=== PATIENT | female | born 1965 | race Two or more races ===

== ENCOUNTER 2024-06-28 15:57 | Inpatient (IN) | payer MEDICAID, OTHER ==
[~2024-06-28] VITALS: Ht 160 cm; Wt 99.2 kg
[2024-06-28 16:32] LABS: Basophils # (auto) 0 10 ^3/uL (0-0.2); Basophils % (auto) 0.5 % (0.0-2.0); Eosinophils # (auto) 0.1 10 ^3/uL (0-0.8); Eosinophils % (auto) 1.9 % (0.0-7.0); Hematocrit 45.4 % (36.0-46.0); Hemoglobin 15.1 g/dL (12.2-16.2); Lymphocytes % (auto) 33.4 % (10.0-50.0); Mean Corpuscular Hemoglobin 27.6 pg (28.0-32.0); Mean Corpuscular Hgb Conc. 33.4 g/dL (32.0-36.0); Mean Corpuscular Volume 82.8 fL (80.0-100.0); Monocytes # (auto) 0.5 10 ^3/uL (0-1.3); Monocytes % (auto) 8.6 % (0.0-12.0); Neutrophils # (auto) 3.4 10 ^3/uL (1.6-8.6); Neutrophils % (auto) 55.6 % (37.0-80.0); Platelet Count (auto) 284 10^3/uL (140-450); Red Blood Cells 5.48 10^6/uL (4.0-5.20); Red Cell Distribution Width 14.1 % (11.8-14.3); White Blood Cell 6.1 10^3/uL (4.4-10.8)
[2024-06-28 16:41] LABS: Alanine Aminotransferase 12 U/L (7-40); Albumin 4.6 g/dL (3.2-4.8); Alkaline Phosphatase 111 U/L (46-116); Anion Gap 7 (5-15); Aspartate Aminotransferase 14 U/L (13-40); BUN/Creatinine Ratio 18.6 (10.0-20.0); Bilirubin, Total 0.4 mg/dL (0.2-1.0); Blood Urea Nitrogen 11 mg/dL (9-23); Calcium 10.7 mg/dL (8.7-10.4); Carbon Dioxide 24 mmol/L (20-30); Chloride 109 mmol/L (98-107); Glucose 101 mg/dL (74-106); Potassium 3.8 mmol/L (3.5-5.1); Sodium 140 mmol/L (136-145); Total Protein 7.7 g/dL (5.7-8.2)
[2024-06-28 23:35] VITALS: PULSE 62; RESP 18; O2SAT 99
[2024-06-29] MEDS: MORPHINE SULFATE 4 MG/ML SYR/VIAL IM ONE (00:24)
[2024-06-29] MEDS: ONDANSETRON HCL 4 MG/2 ML VIAL IM ONE (00:24)
[2024-06-29] MEDS: HYDROcodone-ACET 5/325MG TAB PO ONE (00:56)
[2024-06-29] MEDS ORDERED: HYDROcodone-ACET 10/325MG TAB PO PRN (07:00)
[2024-06-29 07:57] VITALS: PULSE 65; RESP 15; O2SAT 97
[2024-06-29] MEDS ORDERED: ONDANSETRON HCL 4 MG/2 ML VIAL IV PRN (13:15)
[2024-06-29] MEDS ORDERED: ACETAMINOPHEN 325 MG TAB PO PRN (13:15)
[2024-06-29] MEDS ORDERED: DOCUSATE SOD 100 MG CAP PO PRN (13:15)
[2024-06-29] MEDS ORDERED: HYDROmorphone HCL 2 MG/ML VL/or syr IV PRN (13:15)
[2024-06-29] MEDS ORDERED: hydrALAZINE HCL 20 MG/ML VL IV PRN (13:15)
[2024-06-29] MEDS: amLODIPine BESYLATE 5 MG TAB PO SCH (13:30)
[2024-06-29] MEDS: SODIUM CHLOR 0.9% PF (SALINE LOCK) 10ML VIAL/SYR IV SCH (14:03)
[2024-06-29] MEDS: HYDROcodone-ACET 5/325MG TAB PO PRN (16:50)
[2024-06-29 17:06] VITALS: PULSE 80; RESP 18; O2SAT 96
[2024-06-29 17:30] VITALS: BP 143/78; PULSE 56; RESP 16; TEMP 97.8; O2SAT 97
[2024-06-29 20:00] VITALS: PULSE 60; RESP 19; O2SAT 95
[2024-06-29 21:06] VITALS: BP 131/67; PULSE 60; RESP 19; TEMP 97.5; O2SAT 95
[2024-06-30] VITALS (7 sets, daily range): BP systolic 120–152; BP diastolic 74–82; PULSE 57–66; RESP 17–20; TEMP 97.7–98.3; O2SAT 96–98
[2024-06-30 06:50] LABS: Anion Gap 5 (5-15); Basophils # (auto) 0 10 ^3/uL (0-0.2); Basophils % (auto) 0.9 % (0.0-2.0); Carbon Dioxide 27 mmol/L (20-30); Chloride 108 mmol/L (98-107); Eosinophils # (auto) 0.1 10 ^3/uL (0-0.8); Eosinophils % (auto) 2.4 % (0.0-7.0); Hematocrit 42.6 % (36.0-46.0); Hemoglobin 14.4 g/dL (12.2-16.2); Lymphocytes # (auto) 1.8 10 ^3/uL (0.4-5.4); Lymphocytes % (auto) 36.7 % (10.0-50.0); Mean Corpuscular Hemoglobin 27.7 pg (28.0-32.0); Mean Corpuscular Hgb Conc. 33.7 g/dL (32.0-36.0); Mean Corpuscular Volume 82.4 fL (80.0-100.0); Monocytes # (auto) 0.5 10 ^3/uL (0-1.3); Monocytes % (auto) 9.6 % (0.0-12.0); Neutrophils # (auto) 2.4 10 ^3/uL (1.6-8.6); Neutrophils % (auto) 50.4 % (37.0-80.0); Nucleated Red Blood Cells % 0.2 %; Platelet Count (auto) 239 10^3/uL (140-450); Potassium 3.6 mmol/L (3.5-5.1); Red Blood Cells 5.17 10^6/uL (4.0-5.20); Red Cell Distribution Width 13.9 % (11.8-14.3); Sodium 140 mmol/L (136-145); White Blood Cell 4.8 10^3/uL (4.4-10.8)
[2024-06-30 06:55] LABS: Glucose 114 mg/dL (74-106)
[2024-06-30 06:56] LABS: BUN/Creatinine Ratio 21.3 (10.0-20.0); Blood Urea Nitrogen 13 mg/dL (9-23); LDL Cholesterol 127 mg/dL (< 100); Triglycerides 171 mg/dL (< 150)
[2024-06-30 06:57] LABS: Cholesterol 186 mg/dL (< 200)
[2024-06-30 06:58] LABS: HDL Cholesterol 35 mg/dL (40-59); Magnesium 2.1 mg/dL (1.6-2.6)
[2024-06-30] MEDS: PANTOPRAZOLE 40 MG TAB PO ONE (10:54)
[2024-06-30] MEDS: ENOXAPARIN SOD 40 MG/0.4 ML SYRINGE SC SCH (10:55)
[2024-06-30] MEDS ORDERED: ACET-1882 PO (19:18)
[2024-06-30] MEDS ORDERED: LISI-275 PO (19:18)
[2024-07-01] MEDS ORDERED: PANTOPRAZOLE 40 MG TAB PO SCH (06:00)
[2024-07-01] MEDS ORDERED: LISINOPRIL 5 MG TAB PO SCH (10:00)
== END 2024-06-30 20:12 | disposition home or self-care (01) | DRG 199 ==
LOC: ER 15:57 → OVERFLOW 06-29 13:05 → CENTRAL 06-29 18:08
PROVIDERS: ADMIT Internal Medicine Pulmonary Disease; ATTEND Emergency Medicine
DX: I16.0 Hypertensive urgency (principal); K76.0 Fatty (change of) liver, not elsewhere classified; E66.9 Obesity, unspecified; M25.511 Pain in right shoulder; R73.03 Prediabetes; I10 Essential (primary) hypertension; E78.5 Hyperlipidemia, unspecified; Z82.49 Family history of ischemic heart disease and other diseases of the circulatory system; Z83.3 Family history of diabetes mellitus; Z91.148 Patient's other noncompliance with medication regimen for other reason; Z90.710 Acquired absence of both cervix and uterus; Z68.39 Body mass index [BMI] 39.0-39.9, adult; T46.5X6A Underdosing of other antihypertensive drugs, initial encounter
CPT/HCPCS: 36415; 71045; 73030; 76705; 80048; 80053; 80061; 83036; 83690; 83735; 83880; 84443; 84484; 85025; 85379; 93005; 93306; G0378